=== PATIENT | female | born 1945 | race Caucasian/White ===

== ENCOUNTER 2017-10-08 21:58 | Inpatient (IN) | payer MEDICAID, OTHER ==
[2017-10-09] MEDS: SOD CHLORIDE 0.9% 1,000 ML IV (02:25)
[2017-10-09] MEDS: morphine 4 MG/ML VIAL IV (02:28)
[2017-10-09] MEDS: ONDANSETRON 4 MG INJ IV (02:28)
[2017-10-09 03:19] LABS: ADD MAN DIFF? NO
[2017-10-09 03:22] LABS: WHITE BLOOD COUNT 7.3 10^3/ul (4.8-10.8)
[2017-10-09 03:22] LABS: BASOPHILS % 0.4 % (0.0-2.0); EOSINOPHILS # 0.2 10^3/ul (0.0-0.5); EOSINOPHILS % 2.9 % (0.0-7.0); HEMATOCRIT 36.9 % (37.0-47.0); LYMPHOCYTES # 3.1 10^3/ul (0.8-2.9); LYMPHOCYTES % 42.4 % (15.0-51.0); MEAN CORPUSCULAR HEMOGLOBIN 29.1 pg (29.0-33.0); MEAN CORPUSCULAR HGB CONC 32.5 g/dl (32.0-37.0); MEAN CORPUSCULAR VOLUME 89.3 fl (82.0-101.0); MEAN PLATELET VOLUME 10.1 fl (7.4-10.4); MONOCYTE # 0.5 10^3/ul (0.3-0.9); MONOCYTES % 6.5 % (0.0-11.0); NEUTROPHIL # 3.5 10^3/ul (1.6-7.5); NEUTROPHILS % 47.5 % (39.0-77.0); PLATELET COUNT 265 10^3/UL (140-415); RED BLOOD COUNT 4.13 10^6/ul (4.20-5.40); RED CELL DISTRIBUTION WIDTH 12.9 % (11.5-14.5)
[2017-10-09 03:38] LABS: ADD UMIC YES; UR ASCORBIC ACID NEGATIVE (NEGATIVE); UR BILIRUBIN (Dip) NEGATIVE (NEGATIVE); UR BLOOD (Dip) NEGATIVE (NEGATIVE); UR CLARITY CLEAR (CLEAR); UR COLOR STRAW (YELLOW); UR GLUCOSE (Dip) NEGATIVE (NEGATIVE); UR KETONES (Dip) NEGATIVE (NEGATIVE); UR LEUKOCYTE ESTERASE (Dip) NEGATIVE Leu/ul (NEGATIVE); UR NITRITE (Dip) NEGATIVE (NEGATIVE); UR RBC 0 /HPF (0-5); UR SPECIFIC GRAVITY (Dip) 1.012 (1.003-1.030); UR TOTAL PROTEIN (Dip) 2+ mg/dl (NEGATIVE); UR UROBILINOGEN (Dip) NEGATIVE (NEGATIVE); UR WBC 1 /HPF (0-5)
[2017-10-09 03:43] LABS: ALANINE AMINOTRANSFERASE 22 IU/L (13-69); ALBUMIN 4.4 g/dl (3.3-4.9); ALBUMIN/GLOBULIN RATIO 1.29; ALKALINE PHOSPHATASE 97 IU/L (42-121); ANION GAP 18 (8-16); ASPARTATE AMINO TRANSFERASE 23 IU/L (15-46); BILIRUBIN,INDIRECT 0.6 mg/dl (0-1.1); BILIRUBIN,TOTAL 0.6 mg/dl (0.2-1.3); BLOOD UREA NITROGEN 30 mg/dl (7-20); CALCIUM 9.9 mg/dl (8.4-10.2); CARBON DIOXIDE 24 mmol/L (21-31); CHLORIDE 110 mmol/L (97-110); CREATININE 1.26 mg/dl (0.44-1.00); GLUCOSE 170 mg/dl (70-220); LIPASE 395 U/L (23-300); POTASSIUM 5.9 mmol/L (3.5-5.1); SODIUM 146 mmol/L (135-144); TOTAL PROTEIN 7.8 g/dl (6.1-8.1)
[2017-10-09 03:55] LABS: TROPONIN-I < 0.012 ng/ml (0.000-0.120)
[2017-10-09] MEDS: FUROSEMIDE 20 MG INJ IV (05:07)
[2017-10-09] MEDS ORDERED: SOD CHLORIDE 0.9% 1,000 ML IV (07:25)
[2017-10-09] MEDS: ASPIRIN 81 MG TAB PO (07:30)
[2017-10-09] MEDS ORDERED: ACETAMINOPHEN 325 MG TAB PO (07:30)
[2017-10-09] MEDS ORDERED: ONDANSETRON 4 MG INJ IV (07:30)
[2017-10-09] MEDS ORDERED: morphine 2 MG INJ IV (07:30)
[2017-10-09] MEDS ORDERED: NITROGLYCERIN (SL) 0.4 MG TAB SL ×2 (07:30→12:30)
[2017-10-09] MEDS ORDERED: NACL 0.9% 3 ML SYG IV ×2 (07:30→10:00)
[2017-10-09] MEDS ORDERED: GLUCOSE GEL 15 GRAM TUBE PO ×2 (10:30)
[2017-10-09] MEDS ORDERED: DEXTROSE 50% 50 ML SYRINGE IV ×2 (10:30)
[2017-10-09] MEDS ORDERED: GLUCAGON 1 MG INJ IM (10:30)
[2017-10-09] MEDS ORDERED: GLUCOSE GEL 15 GRAM TUBE BUCCAL (10:30)
[2017-10-09 11:22] LABS: SODIUM,URINE RANDOM 145 mmol/L (30-90)
[2017-10-09 11:24] LABS: POTASSIUM,URINE RANDOM 25.1 mmol/L (25-125)
[2017-10-09 11:29] LABS: OSMOLALITY,URINE 358 mOsm/kg (250-1200)
[2017-10-09 11:30] LABS: CHOL/HDL RATIO 6.9 RATIO; CREATINE KINASE 42 IU/L (23-200); HDL CHOLESTEROL 46 mg/dl (33-92); LDL CHOLESTEROL,CALCULATED 187 mg/dl; TRIGLYCERIDES 425 mg/dl (0-149)
[2017-10-09 11:30] LABS: CHOLESTEROL 318 mg/dl (100-200); HEMOGLOBIN A1C 8.2 % (0-5.9)
[2017-10-09 11:31] LABS: ANION GAP 19 (8-16); BLOOD UREA NITROGEN 26 mg/dl (7-20); CALCIUM 9.7 mg/dl (8.4-10.2); CARBON DIOXIDE 25 mmol/L (21-31); CHLORIDE 108 mmol/L (97-110); CREATININE 1.25 mg/dl (0.44-1.00); GLUCOSE 170 mg/dl (70-220); POTASSIUM 5.3 mmol/L (3.5-5.1); SODIUM 147 mmol/L (135-144)
[2017-10-09 11:33] LABS: CREATININE,URINE RANDOM 14.74 mg/dl (20-320); PROTEIN/CREAT RATIO 1.28 RATIO
[2017-10-09 11:41] LABS: OSMOLALITY 303 mOsm/kg (280-295)
[2017-10-09 11:42] LABS: CK INDEX 0.9; CK-MB 0.37 ng/ml (0.0-2.4)
[2017-10-09] MEDS: SOD CHLORIDE 0.45% 1,000 ML IV (11:43)
[2017-10-09] MEDS: DOCUSATE SODIUM 100 MG CAP PO ×2 (11:43→21:02)
[2017-10-09] MEDS: AMLODIPINE 5 MG TAB PO (11:43)
[2017-10-09 11:44] LABS: TROPONIN-I < 0.012 ng/ml (0.000-0.120)
[2017-10-09] MEDS: INSULIN ASPART [NOVOLOG] 3 ML PEN SC ×3 (11:55→21:04)
[2017-10-09 13:46] LABS: CREATINE KINASE 41 IU/L (23-200)
[2017-10-09 13:59] LABS: CK INDEX 0.7; CK-MB 0.29 ng/ml (0.0-2.4)
[2017-10-09 14:00] LABS: TROPONIN-I < 0.012 ng/ml (0.000-0.120)
[2017-10-09] MEDS ORDERED: morphine LIQ (10 MG/5 ML) CUP PO (15:30)
[2017-10-09] MEDS: ATORVASTATIN 10 MG TAB PO (21:02)
[2017-10-09] MEDS: HEPARIN 5,000 UNIT/0.5 ML VIAL SC (21:03)
[2017-10-10] MEDS: SOD CHLORIDE 0.45% 1,000 ML IV ×3 (00:22→16:00)
[2017-10-10] MEDS: ACCU-CHEK XX (02:47)
[2017-10-10 06:38] LABS: ADD MAN DIFF? NO
[2017-10-10 06:54] LABS: BASOPHILS % 0.3 % (0.0-2.0); EOSINOPHILS # 0.2 10^3/ul (0.0-0.5); EOSINOPHILS % 3.1 % (0.0-7.0); HEMATOCRIT 34.5 % (37.0-47.0); HEMOGLOBIN 11.2 g/dl (12.0-16.0); LYMPHOCYTES # 2.7 10^3/ul (0.8-2.9); LYMPHOCYTES % 43.7 % (15.0-51.0); MEAN CORPUSCULAR HEMOGLOBIN 28.9 pg (29.0-33.0); MEAN CORPUSCULAR HGB CONC 32.5 g/dl (32.0-37.0); MEAN CORPUSCULAR VOLUME 89.1 fl (82.0-101.0); MEAN PLATELET VOLUME 10.5 fl (7.4-10.4); MONOCYTE # 0.4 10^3/ul (0.3-0.9); MONOCYTES % 6.1 % (0.0-11.0); NEUTROPHIL # 2.9 10^3/ul (1.6-7.5); NEUTROPHILS % 46.3 % (39.0-77.0); PLATELET COUNT 239 10^3/UL (140-415); RED BLOOD COUNT 3.87 10^6/ul (4.20-5.40); RED CELL DISTRIBUTION WIDTH 12.9 % (11.5-14.5)
[2017-10-10 06:54] LABS: WHITE BLOOD COUNT 6.2 10^3/ul (4.8-10.8)
[2017-10-10 07:17] LABS: CREATINE KINASE 33 IU/L (23-200)
[2017-10-10 07:17] LABS: URIC ACID 9.4 mg/dl (3.1-7.9)
[2017-10-10] MEDS: INSULIN ASPART [NOVOLOG] 3 ML PEN SC ×4 (08:06→21:30)
[2017-10-10 08:08] LABS: ALANINE AMINOTRANSFERASE 20 IU/L (13-69); ALBUMIN 3.8 g/dl (3.3-4.9); ALBUMIN/GLOBULIN RATIO 1.26; ALKALINE PHOSPHATASE 72 IU/L (42-121); ANION GAP 18 (8-16); ASPARTATE AMINO TRANSFERASE 22 IU/L (15-46); BILIRUBIN,INDIRECT 0.4 mg/dl (0-1.1); BILIRUBIN,TOTAL 0.4 mg/dl (0.2-1.3); BLOOD UREA NITROGEN 25 mg/dl (7-20); CALCIUM 8.9 mg/dl (8.4-10.2); CARBON DIOXIDE 22 mmol/L (21-31); CHLORIDE 111 mmol/L (97-110); CREATININE 1.27 mg/dl (0.44-1.00); GLUCOSE 155 mg/dl (70-220); POTASSIUM 5.1 mmol/L (3.5-5.1); SODIUM 146 mmol/L (135-144); TOTAL PROTEIN 6.8 g/dl (6.1-8.1)
[2017-10-10] MEDS: AMLODIPINE 5 MG TAB PO (08:49)
[2017-10-10] MEDS: ASPIRIN 81 MG TAB PO (08:49)
[2017-10-10] MEDS: DOCUSATE SODIUM 100 MG CAP PO ×2 (08:49→21:29)
[2017-10-10] MEDS: INSULIN GLARGINE [LANtus] 3 ML PEN SC (08:52)
[2017-10-10] MEDS: HEPARIN 5,000 UNIT/0.5 ML VIAL SC ×2 (08:56→21:31)
[2017-10-10] MEDS ORDERED: LORAZEPAM 1 MG TAB PO (10:00)
[2017-10-10] MEDS: LIDOCAINE 5% PATCH TD (14:47)
[2017-10-10] MEDS: LORAZEPAM 2 MG INJ IV (16:00)
[2017-10-10] MEDS: ATORVASTATIN 10 MG TAB PO (21:29)
[2017-10-11] MEDS: SOD CHLORIDE 0.45% 1,000 ML IV (05:51)
[2017-10-11 06:27] LABS: ADD MAN DIFF? NO
[2017-10-11 06:32] LABS: BASOPHILS % 0.3 % (0.0-2.0); EOSINOPHILS # 0.2 10^3/ul (0.0-0.5); EOSINOPHILS % 2.5 % (0.0-7.0); HEMATOCRIT 37.5 % (37.0-47.0); HEMOGLOBIN 12.4 g/dl (12.0-16.0); LYMPHOCYTES # 2.8 10^3/ul (0.8-2.9); LYMPHOCYTES % 45.6 % (15.0-51.0); MEAN CORPUSCULAR HEMOGLOBIN 29.2 pg (29.0-33.0); MEAN CORPUSCULAR HGB CONC 33.1 g/dl (32.0-37.0); MEAN CORPUSCULAR VOLUME 88.2 fl (82.0-101.0); MEAN PLATELET VOLUME 10.5 fl (7.4-10.4); MONOCYTE # 0.4 10^3/ul (0.3-0.9); MONOCYTES % 6.8 % (0.0-11.0); NEUTROPHIL # 2.7 10^3/ul (1.6-7.5); NEUTROPHILS % 44.6 % (39.0-77.0); PLATELET COUNT 271 10^3/UL (140-415); RED BLOOD COUNT 4.25 10^6/ul (4.20-5.40); RED CELL DISTRIBUTION WIDTH 12.6 % (11.5-14.5)
[2017-10-11 06:32] LABS: WHITE BLOOD COUNT 6.1 10^3/ul (4.8-10.8)
[2017-10-11 06:56] LABS: MAGNESIUM 1.2 mg/dl (1.7-2.5)
[2017-10-11 07:04] LABS: ALANINE AMINOTRANSFERASE 29 IU/L (13-69); ALBUMIN 4.1 g/dl (3.3-4.9); ALBUMIN/GLOBULIN RATIO 1.32; ALKALINE PHOSPHATASE 69 IU/L (42-121); ANION GAP 15 (8-16); ASPARTATE AMINO TRANSFERASE 22 IU/L (15-46); BILIRUBIN,INDIRECT 0.6 mg/dl (0-1.1); BILIRUBIN,TOTAL 0.6 mg/dl (0.2-1.3); BLOOD UREA NITROGEN 25 mg/dl (7-20); CALCIUM 9.5 mg/dl (8.4-10.2); CARBON DIOXIDE 25 mmol/L (21-31); CHLORIDE 111 mmol/L (97-110); CREATININE 1.22 mg/dl (0.44-1.00); GLUCOSE 150 mg/dl (70-220); POTASSIUM 4.7 mmol/L (3.5-5.1); SODIUM 146 mmol/L (135-144); TOTAL PROTEIN 7.2 g/dl (6.1-8.1)
[2017-10-11 07:05] LABS: INR 1.02; PROTIME 13.5 Sec (11.9-14.9); PT RATIO 1.1
[2017-10-11 07:06] LABS: PARTIAL THROMBOPLASTIN TIME 29.8 Sec (25.0-35.0)
[2017-10-11] MEDS: INSULIN GLARGINE [LANtus] 3 ML PEN SC (10:03)
[2017-10-11] MEDS: HEPARIN 5,000 UNIT/0.5 ML VIAL SC ×2 (10:05→20:57)
[2017-10-11] MEDS: INSULIN ASPART [NOVOLOG] 3 ML PEN SC ×4 (10:05→20:58)
[2017-10-11] MEDS: MAGNESIUM SULFATE 4 GM/100 ML 100 ML IVPB (10:08)
[2017-10-11] MEDS: ASPIRIN 81 MG TAB PO (10:08)
[2017-10-11] MEDS: DOCUSATE SODIUM 100 MG CAP PO ×2 (10:08→20:53)
[2017-10-11] MEDS: MAGNESIUM OXIDE 400 MG TAB PO (10:09)
[2017-10-11] MEDS: LINAGLIPTIN 5 MG TABLET PO (10:09)
[2017-10-11] MEDS: AMLODIPINE 5 MG TAB PO (10:10)
[2017-10-11] MEDS: LIDOCAINE 5% PATCH TD (10:10)
[2017-10-11] MEDS: ATORVASTATIN 10 MG TAB PO (20:53)
[2017-10-12 06:09] LABS: ADD MAN DIFF? NO
[2017-10-12 06:39] LABS: ALBUMIN 4.4 g/dl (3.3-4.9); ANION GAP 17 (8-16); BLOOD UREA NITROGEN 29 mg/dl (7-20); CALCIUM 9.6 mg/dl (8.4-10.2); CARBON DIOXIDE 24 mmol/L (21-31); CHLORIDE 107 mmol/L (97-110); GLUCOSE 196 mg/dl (70-220); MAGNESIUM 2.2 mg/dl (1.7-2.5); PHOSPHORUS 4.9 mg/dl (2.5-4.9); POTASSIUM 4.9 mmol/L (3.5-5.1); SODIUM 143 mmol/L (135-144)
[2017-10-12 08:13] LABS: WHITE BLOOD COUNT 6.7 10^3/ul (4.8-10.8)
[2017-10-12 08:13] LABS: BASOPHILS % 0.3 % (0.0-2.0); EOSINOPHILS # 0.2 10^3/ul (0.0-0.5); EOSINOPHILS % 3.1 % (0.0-7.0); HEMATOCRIT 38.2 % (37.0-47.0); HEMOGLOBIN 12.6 g/dl (12.0-16.0); LYMPHOCYTES # 2.5 10^3/ul (0.8-2.9); LYMPHOCYTES % 37.9 % (15.0-51.0); MEAN CORPUSCULAR HEMOGLOBIN 29.1 pg (29.0-33.0); MEAN CORPUSCULAR VOLUME 88.2 fl (82.0-101.0); MEAN PLATELET VOLUME 10.7 fl (7.4-10.4); MONOCYTE # 0.4 10^3/ul (0.3-0.9); MONOCYTES % 6.1 % (0.0-11.0); NEUTROPHIL # 3.5 10^3/ul (1.6-7.5); NEUTROPHILS % 52.2 % (39.0-77.0); PLATELET COUNT 315 10^3/UL (140-415); RED BLOOD COUNT 4.33 10^6/ul (4.20-5.40); RED CELL DISTRIBUTION WIDTH 12.7 % (11.5-14.5)
[2017-10-12] MEDS: INSULIN ASPART [NOVOLOG] 3 ML PEN SC ×4 (08:31→20:05)
[2017-10-12] MEDS: INSULIN GLARGINE [LANtus] 3 ML PEN SC (08:32)
[2017-10-12] MEDS: HEPARIN 5,000 UNIT/0.5 ML VIAL SC ×2 (09:12→20:06)
[2017-10-12] MEDS: AMLODIPINE 5 MG TAB PO (09:12)
[2017-10-12] MEDS: LINAGLIPTIN 5 MG TABLET PO (09:13)
[2017-10-12] MEDS: ASPIRIN 81 MG TAB PO (09:13)
[2017-10-12] MEDS: LIDOCAINE 5% PATCH TD (09:13)
[2017-10-12] MEDS: DOCUSATE SODIUM 100 MG CAP PO ×2 (09:14→20:02)
[2017-10-12] MEDS: ATORVASTATIN 10 MG TAB PO (20:02)
[2017-10-13] MEDS: INSULIN GLARGINE [LANtus] 3 ML PEN SC (08:28)
[2017-10-13] MEDS: INSULIN ASPART [NOVOLOG] 3 ML PEN SC ×4 (08:29→19:59)
[2017-10-13] MEDS: LINAGLIPTIN 5 MG TABLET PO (08:30)
[2017-10-13] MEDS: ASPIRIN 81 MG TAB PO (08:30)
[2017-10-13] MEDS: DOCUSATE SODIUM 100 MG CAP PO ×2 (08:30→20:00)
[2017-10-13] MEDS: HEPARIN 5,000 UNIT/0.5 ML VIAL SC ×2 (08:32→20:00)
[2017-10-13] MEDS: AMLODIPINE 5 MG TAB PO (08:33)
[2017-10-13 08:37] LABS: ADD MAN DIFF? NO
[2017-10-13] MEDS: LIDOCAINE 5% PATCH TD (08:37)
[2017-10-13 08:48] LABS: WHITE BLOOD COUNT 6.1 10^3/ul (4.8-10.8)
[2017-10-13 08:48] LABS: BASOPHILS % 0.5 % (0.0-2.0); EOSINOPHILS # 0.2 10^3/ul (0.0-0.5); EOSINOPHILS % 3.1 % (0.0-7.0); HEMATOCRIT 37.2 % (37.0-47.0); HEMOGLOBIN 12.3 g/dl (12.0-16.0); LYMPHOCYTES # 2.4 10^3/ul (0.8-2.9); LYMPHOCYTES % 39.4 % (15.0-51.0); MEAN CORPUSCULAR HGB CONC 33.1 g/dl (32.0-37.0); MEAN CORPUSCULAR VOLUME 87.7 fl (82.0-101.0); MEAN PLATELET VOLUME 10.4 fl (7.4-10.4); MONOCYTE # 0.5 10^3/ul (0.3-0.9); MONOCYTES % 8.6 % (0.0-11.0); NEUTROPHILS % 48.1 % (39.0-77.0); PLATELET COUNT 277 10^3/UL (140-415); RED BLOOD COUNT 4.24 10^6/ul (4.20-5.40); RED CELL DISTRIBUTION WIDTH 12.8 % (11.5-14.5)
[2017-10-13 09:39] LABS: ALBUMIN 4.4 g/dl (3.3-4.9); ANION GAP 19 (8-16); BLOOD UREA NITROGEN 31 mg/dl (7-20); CALCIUM 9.4 mg/dl (8.4-10.2); CARBON DIOXIDE 24 mmol/L (21-31); CHLORIDE 106 mmol/L (97-110); CREATININE 1.42 mg/dl (0.44-1.00); GLUCOSE 172 mg/dl (70-220); MAGNESIUM 1.8 mg/dl (1.7-2.5); PHOSPHORUS 4.4 mg/dl (2.5-4.9); POTASSIUM 5.2 mmol/L (3.5-5.1); SODIUM 144 mmol/L (135-144)
[2017-10-13] MEDS: SOD CHLORIDE 0.9% 1,000 ML IV (11:32)
[2017-10-13] MEDS: NA POLYST SULFON 15 GM/60 ML BTL PO (19:02)
[2017-10-13] MEDS: ATORVASTATIN 10 MG TAB PO (19:59)
[2017-10-14] MEDS: SOD CHLORIDE 0.9% 1,000 ML IV (05:31)
[2017-10-14] MEDS: INSULIN GLARGINE [LANtus] 3 ML PEN SC (08:19)
[2017-10-14] MEDS: INSULIN ASPART [NOVOLOG] 3 ML PEN SC ×2 (08:21→12:31)
[2017-10-14] MEDS: LINAGLIPTIN 5 MG TABLET PO (08:22)
[2017-10-14] MEDS: AMLODIPINE 5 MG TAB PO (08:22)
[2017-10-14] MEDS: DOCUSATE SODIUM 100 MG CAP PO (08:22)
[2017-10-14] MEDS: ASPIRIN 81 MG TAB PO (08:22)
[2017-10-14] MEDS: HEPARIN 5,000 UNIT/0.5 ML VIAL SC (08:23)
[2017-10-14] MEDS: LIDOCAINE 5% PATCH TD (08:27)
[2017-10-14 09:02] LABS: ADD MAN DIFF? NO
[2017-10-14] MEDS: BISACODYL (EC) 5 MG TAB PO (09:05)
[2017-10-14 09:09] LABS: BASOPHILS % 0.3 % (0.0-2.0); EOSINOPHILS # 0.2 10^3/ul (0.0-0.5); EOSINOPHILS % 3.6 % (0.0-7.0); HEMATOCRIT 36.3 % (37.0-47.0); HEMOGLOBIN 12.1 g/dl (12.0-16.0); LYMPHOCYTES % 34.2 % (15.0-51.0); MEAN CORPUSCULAR HEMOGLOBIN 29.1 pg (29.0-33.0); MEAN CORPUSCULAR HGB CONC 33.3 g/dl (32.0-37.0); MEAN CORPUSCULAR VOLUME 87.3 fl (82.0-101.0); MEAN PLATELET VOLUME 10.6 fl (7.4-10.4); MONOCYTE # 0.4 10^3/ul (0.3-0.9); MONOCYTES % 7.5 % (0.0-11.0); NEUTROPHIL # 3.1 10^3/ul (1.6-7.5); NEUTROPHILS % 53.9 % (39.0-77.0); PLATELET COUNT 290 10^3/UL (140-415); RED BLOOD COUNT 4.16 10^6/ul (4.20-5.40); RED CELL DISTRIBUTION WIDTH 13.1 % (11.5-14.5)
[2017-10-14 09:09] LABS: WHITE BLOOD COUNT 5.8 10^3/ul (4.8-10.8)
[2017-10-14 09:32] LABS: ALBUMIN 4.2 g/dl (3.3-4.9); ANION GAP 16 (8-16); BLOOD UREA NITROGEN 28 mg/dl (7-20); CALCIUM 9.7 mg/dl (8.4-10.2); CARBON DIOXIDE 27 mmol/L (21-31); CHLORIDE 109 mmol/L (97-110); CREATININE 1.12 mg/dl (0.44-1.00); GLUCOSE 175 mg/dl (70-220); PHOSPHORUS 4.5 mg/dl (2.5-4.9); POTASSIUM 4.7 mmol/L (3.5-5.1); SODIUM 147 mmol/L (135-144)
[2017-10-14 10:55] LABS: MAGNESIUM 1.5 mg/dl (1.7-2.5)
[2017-10-14] MEDS: MAGNESIUM OXIDE 400 MG TAB PO (15:33)
== END 2017-10-14 17:25 | disposition home or self-care (01) | DRG 683 ==
LOC: E/R 21:58 → MS4 10-09 07:21
DX: N17.9 Acute kidney failure, unspecified (principal); E87.0 Hyperosmolality and hypernatremia; I16.0 Hypertensive urgency; E11.65 Type 2 diabetes mellitus with hyperglycemia; G89.29 Other chronic pain; E86.0 Dehydration; R07.9 Chest pain, unspecified; E87.5 Hyperkalemia; E11.22 Type 2 diabetes mellitus with diabetic chronic kidney disease; I12.9 Hypertensive chronic kidney disease with stage 1 through stage 4 chronic kidney disease, or unspecified chronic kidney disease; N18.9 Chronic kidney disease, unspecified; Z91.14 Patient's other noncompliance with medication regimen
CPT/HCPCS: 36415; 71045; 72146; 72148; 74019; 74176; 74181; 76775; 80048; 80053; 80061; 80069; 81001; 81003; 82550; 82553; 82570; 82962; 83036; 83690; 83735; 83930; 83935; 84100; 84133; 84300; 84443; 84484; 84560; 85025; 85610; 85730; 89190; 93005; 93306; 96361; 96374; 96375; 97161; 99285-25; G0378